=== PATIENT | female | born 1995 | race Caucasian/White ===

== ENCOUNTER → 2016-09-20 | Day surgery (SDC) | payer OTHER ==
[~2016-09-20] VITALS: Ht 157.4 cm; Wt 93.0 kg
[~2016-09-20] MED LIST: PRILOSEC20 M1 PO
--- NOTE | ~2016-09-20 | O ---
[place], [place] OPERATIVE NOTE NAME: DAVID ANDRADE UNIT #: [id number] ROOM: DOCTOR: MERRITT ROMAN MD BIRTHDATE: [birth year] DOS: HISTORY OF PRESENT ILLNESS: The patient is 21 years old who has presented with dyspepsia, epigastric distress, left upper abdominal pain. PAST MEDICAL HISTORY: Associated with morbid obesity for age and height. High BMI. ALLERGIES: To no known medication. PAST SURGICAL HISTORY: Nil. PAST MEDICAL HISTORY: Peptic ulcer disease. SOCIAL HISTORY: Nonsmoker, nonalcohol consumer using 4-6 carbonated beverage per day. The patient has been on Prilosec with suspected H pylori. PROCEDURE: Today's procedure part of investigation is panendoscopy and colonoscopy. PREMEDICATION: Versed and Diprivan. SCOPE: Olympus forward-viewing colonoscope 10L video. REPORT: After putting the patient in the left lateral position and after application of lubricant to the scope, the scope was introduced. Thereafter, under direct visualization, I advanced through the length of colon without difficulty. Tortuosity of the hepatic flexure was identified this is as well to splenic flexure. However, base of the cecum explored, appendiceal orifice identified, ileocecal valve was defined and photographed. The patient was gradually extubated, tolerated the procedure well. IMPRESSION: Tortuosity of colon, particularly in hepatic and splenic flexure. PLAN AND DISCUSSION: High fiber diet. Furthermore, I have advised the patient from drinking 6 bottles of carbonated soda per day. [place], [place] OPERATIVE NOTE NAME: DAVID ANDRADE UNIT #: [id number] ROOM: DOCTOR: MERRITT ROMAN MD BIRTHDATE: [birth year] MERRITT ROMAN MD CM:OPRECORD:OPERATIVE NOTE 1121 1220 MERRITT ROMAN MD 09/20/16 1219 interface
--- NOTE | ~2016-09-20 | O ---
[place], [place] OPERATIVE NOTE NAME: DAVID ANDRADE UNIT #: [id number] ROOM: DOCTOR: ABEL EWING,MERRITT BIRTHDATE: [birth year] DOS: The patient has presented with chief complaint of epigastric abdominal pain. The patient with H pylori suspected history. PROCEDURE: Today's procedure part of investigation is panendoscopy plus biopsy. PREMEDICATION: Versed and Diprivan. SCOPE: Olympus forward-viewing gastroscope Q10 video. REPORT: After putting the patient in the left lateral position and after application of lubricant to the scope, the scope was introduced; thereafter, under direct visualization advanced through the length of esophagus without difficulty. Small distal esophageal ulceration and small hiatal hernia was noticed. Gastric pouch was entered. Gastritis seen. Duodenal bulb, second and third part within normal limits. The patient extubated, tolerated procedure well. IMPRESSION: Distal esophageal ulcer, small hiatal hernia, gastritis, status post biopsy. PLAN AND DISCUSSION: Omeprazole 20 mg daily. Elevation of the head of bed 6 inches all time. Office followup in 2 weeks. H pylori results pending. Thank you very much indeed for your kind referral. MERRITT ROMAN MD CM:OPRECORD:OPERATIVE NOTE 1121 1221 MERRITT ROMAN MD 09/20/16 1221 interface
[2016-09-20 11:13] VITALS: BP 89/37
[2016-09-20 11:28] VITALS: BP 100/42
[2016-09-20 11:43] VITALS: BP 122/84
== END | disposition home or self-care (01) ==
LOC: EDBD 09-15 09:30 → SDC 09-15 09:30
DX: K63.89 Other specified diseases of intestine (principal); K29.50 Unspecified chronic gastritis without bleeding; K22.10 Ulcer of esophagus without bleeding; K44.9 Diaphragmatic hernia without obstruction or gangrene; E66.01 Morbid (severe) obesity due to excess calories; K21.9 Gastro-esophageal reflux disease without esophagitis

== ENCOUNTER 2018-06-05 23:46 | Emergency (ER) | payer OTHER ==
[2018-06-06] MEDS ORDERED: PROAIR HFA8.5 GM INH (00:22)
[2018-06-06] MEDS ORDERED: CLARITIN10 MG PO (00:22)
[2018-06-06] MEDS ORDERED: TESSALON PERLE100 M1 PO (00:22)
[2018-06-07] MEDS ORDERED: AUGMENTIN 875875 MG PO (19:31)
== END 2018-06-06 00:31 | disposition home or self-care (01) ==
LOC: ED 23:46
DX: J06.9 Acute upper respiratory infection, unspecified (principal); Z79.899 Other long term (current) drug therapy